=== PATIENT | female | born 1980 | race Caucasian/White ===

== ENCOUNTER 2024-03-18 14:35 | Emergency (ER) | payer MEDICAID, SELFPAY ==
--- OUTSIDE RECORDS SUMMARY | 2024-03-18 14:37 | XMS_ITS | Clinical Summary ---
Author Organization [facility] Address [address] [place] [address] Care Team Providers Care Kitchen Steward/Stewardess Name Role Phone [facility] Provider Allergies Active Allergy Reactions Criticality Noted Date Comments Sulfa Antibiotics Other (See Comments) 08/24/19 15 Tingling face Medications metFORMIN (GLUCOPHAGE-XR) 500 MG 24 hr tablet Take 1,000 mg by mouth daily (with dinner) Active Vit-Fe Fumarate-FA ( MULTIVITAMIN PLUS IRON) 27-0.8 MG TABS Take 1 tablet by mouth daily Active nitrofurantoin, macrocrystal-mono hydrate, (MACROBID) 100 MG capsule Take 1 capsule (100 mg) by mouth 2 times daily 14 capsule 0 5 Active metoclopramide (REGLAN) 10 MG tablet Take 1 tablet (10 mg) by mouth 3 times daily as needed (Nausea or Vomiting) 20 tablet 0 5 Active Pantoprazole Sodium (PROTONIX PO) Take 20 mg by mouth Active Omeprazole (PRILOSEC PO) Active Active Problems Problem Noted Date Diagnosed Date Indication for care in labor or delivery 016 CARDIOVASCULAR SCREENING; LDL GOAL LESS THAN 160 08/24/2014 Nicotine dependence 08/24/2014 Immunizations Name Administration Dates Next Due TDAP (Adacel,Boostrix) 01/18/2012 Social History Tobacco Use Types Packs/Day Years Used Date Smoking Tobacco: Former Cigarettes Tobacco Cessation:Ready to Q uit: No; Counseling Given: Yes Alcohol Use Standard Drinks/Week Comments No 0 (1 standard drink = 0.6 oz pur e alcohol) Socially Comments No Sex and Gender Information Value Date Recorded Sex Assigned at Not on file Legal Sex Female 1:45 PM CDT Gender Identity Not on file Sexual Orientation Not on file Last Filed Vital Signs Vital Sign Reading Time Taken Comments Blood Pressure 106/69 05/05/2017 8:30 PM CDT Pulse 64 05/05/2017 6:48 PM CDT Temperature 37.2 C (98.9 F) 05/05/2017 6:48 PM CDT Respiratory Rate 16 05/05/2017 8:15 PM CDT Oxygen Saturation 98% 05/05/2017 8:15 PM CDT Inhaled Oxygen Concentration - - Weight 88 kg (194 lb) 05/05/2017 6:48 PM CDT Height 182.9 cm (6') 05/05/2017 6:48 PM CDT Body Mass Index 26.31 05/05/2017 6:48 PM CDT Plan of Treatment Not on file Care Teams Kitchen Steward/Stewardess Relationship Specialty Start Date End Date [facility], [address] [address] [place] [address] PCP - General 08/18/14
--- OUTSIDE RECORDS SUMMARY | 2024-03-18 14:37 | XMS_ITS | Clinical Summary ---
Author Organization [facility] Address [place], [place] [address] Care Team Providers Care Port Warden Name Role Phone DirkLibia smith Primary Care Provider [phone] Amber Lomax IMPREGNATOR [employer] Unavailable Unavaila Brenda Correa RD Unavailable Unavailab Lauren Miller NP Unavailable Unavailable Shane Ventura RN Unavailable [phone] Allergies Active Allergy Reactions Criticality Noted Date Comments Sulfa (Sulfonamide Antibiotics) Other - Describe In Comment Field 01/18/2012 Face felt tingly Medications multivitamins pediatric chewable (FLINTSTONE'S) chewable tabletIndications :S/P gastric surgery Take 2 tablets by mouth once daily. 180 tablet 3 11/03/19 18 Active omeprazole (PRILOSEC) 20 mg Delayed-Release capsuleIndication s:GERD with esophagitis Take 1 capsule by mouth once daily before a meal. 90 capsule 3 02/23/19 20 Active Additional Information Patient taking differently:20 mg OralTWICE DAILY BEFORE MEALS, Informant: Patient's Recall, Reported on 02/05/2020 polyethylene glycoL (MIRALAX) 17 gram/dose powderIndications :Constipation, unspecified constipation type Take 17 g by mouth once daily. 1 jar 1 02/04/20 20 Active b complex vitamins (VITAMIN B COMPLEX) capsule Take 1 Capsule by mouth. 0 10/22/19 21 Active ferrous sulfate, 65 mg elemental, tabletIndications :Bariatric surgery status,Low ferritin Take 1 Tablet (325 mg) by mouth once daily with a meal. 90 Tablet 02/27/19 Active cholecalciferol (Vitamin D-3) 2,000 unit capsuleIndication s:Vitamin D insufficiency Take two capsules once daily or 4000 iu of vitamin D3 daily. 0 04/21/19 Active BD Cindy 2nd Gen Pen Needle 32 gauge x Indications: Bariatric surgery status,Overweight (BMI 25.0-29.9),Histor y of obesity FOR ADMINISTERING INSULIN AT HOME. TO USE WITH SAXENDA 100 Each 04/23/19 Active Saxenda 3 mg/0.5 mL (18 mg/3 mL) pnijIndications:B ariatric surgery status,Overweight (BMI 25.0-29.9),Histor y of obesity INJECT 3 MG (0.5ML) SUBCUTANEOUS ONCE DAILY. 5 Each 06/05/19 Active Active Problems Patient Care Coordination No te Formatting of this note migh t be different from the original. 2020 RD consult order entered 03/05/20. 2017 LSG 273 (6'; 37) Dr. Hinkle in [facility] program binder given to patient on 02/04/2020 [facility] Sandip Peraza LPN 02/04/20 10:05 AM Progress Note for Multidisciplinary Case Review 01/31/2020 Reason for Multidisciplinary Case Review: History of laparoscopic sleeve gastrectomy with Dr. Hinkle in 2017 in [place] with concern regarding GERD on PPI BID and continues to have Heartburn. Has a 20lb wt gain since covid started. Current BMI 25.7 WT 190 lbs A comprehensive review of imaging and relevant past medical history occured. UgI 01/30/20: IMPRESSION: 1. Small hiatal hernia without demonstration of gastroesophageal reflux. 2. Post gastric bypass with apparent breakdown of the staple line. 3. 2.5 cm diverticulum arising from the 2nd portion of the duodenum. EGD [place] 02/05/20: Impressions/Post-Op Diagnosis: - LA Grade A reflux esophagitis. - Normal gastroesophageal junction. - Small hiatal hernia. - Gastric sleeve with apparent proximal kink - No narrowing of sleeve incisura - Normal examined duodenum. - Several biopsies were obtained in the distal esophagus. Recommendation: - Continue present medications. - A letter will be sent to the patient with pathology results and any future recommendations. - The Bariatric Center will call you to make a plan for ongoing care after presentation of your history and anatomy at our Multidisciplinary Review (MDR). - Use Protonix (pantoprazole) 40 mg PO BID for 6 weeks. MDR on 02-21-20: Staff present from [facility], [facility], [facility] including Surgeons, Advance Practice Clinicians, Bariatric Nurse Clinicians, Registered Dietitians, Psychologists Patient was presented on: 02/21/20 Patient notified by phone on: 03/28/20 Chart update/addendum completed on: 04/29/20 Progress Note for Multidisciplinary Case Review 01/31/2020 Reason for Multidisciplinary Case Review: History of laparoscopic sleeve gastrectomy with Dr. Hinkle in 2017 in [facility] with concern regarding GERD on PPI BID and continues to have Heartburn. Has a 20lb wt gain since covid started. Current BMI 25.7 WT 190 lbs A comprehensive review of imaging and relevant past medical history occured. UgI 01/30/20: IMPRESSION: 1. Small hiatal hernia without demonstration of gastroesophageal reflux. 2. Post gastric bypass with apparent breakdown of the staple line. 3. 2.5 cm diverticulum arising from the 2nd portion of the duodenum. EGD [place] 02/05/20: Impressions/Post-Op Diagnosis: - LA Grade A reflux esophagitis. - Normal gastroesophageal junction. - Small hiatal hernia. - Gastric sleeve with apparent proximal kink - No narrowing of sleeve incisura - Normal examined duodenum. - Several biopsies were obtained in the distal esophagus. Recommendation: - Continue present medications. - A letter will be sent to the patient with pathology results and any future recommendations. - The Bariatric Center will call you to make a plan for ongoing care after presentation of your history and anatomy at our Multidisciplinary Review (MDR). - Use Protonix (pantoprazole) 40 mg PO BID for 6 weeks. MDR on 02/21/20: Staff present from [facility], [place] including Surgeons, Advance Practice Clinicians, Bariatric Nurse Clinicians, Registered Dietitians, Psychologists Discussion/Plan: candidate for Conversion to gastric Bypass per [facility]. Dr. Ceron not available at time of MDR. Message sent to him for review. If pt does NOT qualify per insurance, then the LINX procedure would be done. Additional testing needed: 04/28/20- DR. Ceron placed order for Motility Study. Present at [facility] again in Jun, 2020. Anticipated codes to be added to problem list GERD, Stapleline Disruption and Weight gain following weight loss surgery Problem Noted Date Diagnosed Date Overweight (BMI 25.0-29.9) 05/05/2020 History of obesity 05/05/2020 Hiatal hernia with GERD and esophagitis 04/29/19 Controlled substance agreeme nt signed - medical weight managment 02/04/2020 Overview (02/04/2020): phentermine GERD with esophagitis 02/23/2019 Chronic constipation 02/23/2019 Vitamin B 12 deficiency 02/23/2019 S/P Laparoscopic sleeve aline rectomy 2016 Dr. Hinkle in [place] 11/22/2017 Low serum HDL 04/03/2017 S/P section 06/10/2015 Branchial cleft cyst 03/13/2012 Anxiety state, unspecified 01/20/2012 Menorrhagia 01/20/2012 Resolved Problems Problem Noted Date Diagnosed Date Resolved Date Gestational diabetes 06/10/2015 018 Acute blood loss anemia 06/10/201503/17 Elevated blood pressure affe cting in third trimester, antepartum 06/10/2015 8 Elevated blood pressure 05/14/201503/17 GDM, class A2 05/07/2015 04/03/2017 Overview (05/07/2015): Diagnosed in 04/2015 at 33 weeks gestation, has history of GDM (Rx Glyburide). On metformin since 2012 for insulin resistance (no polycystic ovary syndrome) 05/01/2015 First visit to and Diabetes Clinic. 05/07/2015 Insulin initiation at 33w4d weeks gestation in the and Diabetes Clinic with Dr. King. Tobacco abuse 01/20/2012 11/02/2017 History of abnormal Pap smear 01/18/2012 04/03/2017 Obesity, unspecified 01/18/2012 020 NEOP, NOS, BONE/SOFT TISSUE/SKIN 06/29/1999 04/03/2017 Immunizations Name Administration Dates Next Due AMB INFLUENZA, IIV4 (AGE=>6M OS) MDV (Flu Clinic Only) 12/17/2018 Hepatitis B (Peds) 12/07/1999,06/29/1999, 000 Influenza, IIV3 (Age >=3 years) 01/18/2012 Influenza, IIV4 11/02/2017 Influenza,CCIIV4 PRESERV FREE 11/16/2016 Td (Age >=7 Years) 11/06/2001 Tdap 03/18/2015,01/18/2012 Family History Medical History Relation Name Comments COPD Father Cancer Father Lung Cancer-prostate Father Diabetes Father Heart failure Father Hyperlipidemia Father Hypertension Father Obesity Father Dementia Maternal Grandfather Lung cancer Maternal Grandmother Cancer-colon Maternal Uncle Diabetes Mother Hyperlipidemia Mother Hypertension Mother Obesity Mother Genetic Other 1 nil Genetic Other 2 no CA/CAD/DM/HT N Heart attack Paternal Grandfather Heart attack Paternal Grandmother Relation Name Status Comments Brother 1 Alive Brother 2 Alive Father Maternal Grandfather Maternal Grandmother Maternal Uncle Mother Alive Other 1 Other 2 Paternal Grandfather Paternal Grandmother Social History Tobacco Use Types Packs/Day Years Used Date Smoking Tobacco: Former Cigarettes 0.5 15 0 03/15/2001 - 03/15/2016 Smokeless Tobacco: Never Tobacco Cessation:Counseling Given: Yes Comments:off/on x 15 yrs Alcohol Use Standard Drinks/Week Comments Yes 0 (1 standard drink = 0.6 oz pur e alcohol) occassional PHQ-2 Answer Date Recorded PHQ-2 TOTAL SCORE 0 02/04/2020 Social Connections Answer Date Recorded Frequency of Communication with Friends and Fami ly Not on file 02/04/2021 Financial Resource Strain Answer Date R ecorded Difficulty of Paying Living Expenses Not on file 02/04/2021 Difficulty of Paying Living Expenses Not on file 02/04/2021 Comments No Sex and Gender Information Value Date Recorded Sex Assigned at Not on file Legal Sex Female 6:18 AM [employer] HRMS DEVELOPER Gender Identity Not on file Sexual Orientation Not on file 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 Last Filed Vital Signs Vital Sign Reading Time Taken Comments Blood Pressure 110/70 04/09/2021 1:12 PM [employer] HRMS DEVELOPER Pulse 100 04/09/2021 1:12 PM [employer] HRMS DEVELOPER Temperature 37.2 C (98.9 F) 05/28/2020 6:32 PM CDT Respiratory Rate 16 05/28/2020 6:32 PM CDT Oxygen Saturation 97% 05/28/2020 6:32 PM CDT Inhaled Oxygen Concentration - - Weight 86.2 kg (190 lb) 04/09/2021 1:12 PM [employer] HRMS DEVELOPER Height 182.9 cm (6' 0.01) 04/09/2021 1:12 PM CS T Body Mass Index 25.76 04/09/2021 1:12 PM [employer] HRMS DEVELOPER Plan of Treatment Upcoming Encounters Date Type Department Care Team (Late st Contact Info) Description 03/23/2024 11:15 AM [employer] HRMS DEVELOPER Office Visit [facility] [address] [place] [address] [place] [address] [place] [address] Health Maintenance Due Date Last Done Comments Pap test for age 21-65 04/01/2020 8, 01/18/2012, 01/10/2002, Additional history exists Depression screening for age 12+ 02/03/2021 02/04/2020, 01/22/2020, 02/23/2019, Additional history exists BMI (ht and wt on same day) for age 18+ 04/09/2022 04/09/2021, 02/27/2021, 12/30/2020, Additional history exists COVID-19 vaccine series ( season) 2023 04/29/2020, 04/12/2020 Influenza for age 9-49 10/16/2023 9, 11/02/2017, 11/16/2016, Additional history exists Tetanus booster 03/18/2025 03/18/2015, 05/2011, 11/06/2001 Tdap Completed 03/18/2015, 01/18/2012 HIV for age 15-65 Completed 06/09/2015 Hepatitis C screening for age 18-79 Completed 06/09/2015 Pneumococcal series for age 6-49 Aged Out No longer eligible based on patient's age to complete this topic Procedures Procedure Name Priority Date/Time Associated Diagnosis Comments RADIO FREQUENCY TECHNICIAN THIN PREP PAP SCREEN IMAGED Routine 04/01/2017 11:20 AM [employer] HRMS DEVELOPER Cervical cancer screening EXPOSURE (BBF) RAPID HIV STAT 06/09/2015 10:05 AM CDT EXPOSURE (BBF) ANTI HCV STAT 06/09/2015 10:05 AM CDT from Last 3 Months or Most Recently Relevant to Health Maintenance Results * RADIO FREQUENCY TECHNICIAN THIN PREP PAP SCREEN IMAGED (04/01/2017 11:20 AM PEOPLESOFT HRMS DEVELOPER) Case Report Gynecologic Cytology Report Case: [id number] Authorizing Provider: Libia Velazquez DO Collected: 04/01/2017 1120 Ordering Location: [facility] Received: 04/01/2017 1205 Clinic First Screen: Patrice Sarabia Specimen: RADIO FREQUENCY TECHNICIAN ThinPrep Vial Screening, Cervical 04/07/2017 10:28 AM PEOPLESOFT HRMS DEVELOPER [facility] INTERPRETATION/ RESULT NEGATIVE FOR INTRAEPITHELIAL LESION OR MALIGNANCY (NIL) (none) 04/07/2017 10:28 AM PEOPLESOFT HRMS DEVELOPER [facility] IMEN ADEQUACY Satisfactory for evaluation Endocervical component present 04/07/2017 10:28 AM PEOPLESOFT HRMS DEVELOPER [facility] HPV REQUEST HPV if ASCUS 04/07/2017 10:28 AM PEOPLESOFT HRMS DEVELOPER [facility] Date of LMP 03/02/2017 04/07/2017 10:28 AM PEOPLESOFT HRMS DEVELOPER [facility] Last Pap Date 01/18/12 04/07/2017 10:28 AM PEOPLESOFT HRMS DEVELOPER [facility] Last Pap Result NIL 8 10:28 AM [facility] Abnormal Pap or Crum Lynne Bx in last 5 years No 04/07/2017 10:28 AM [facility] Menstrual Status Regular Periods 04/07/2017 10:28 AM [facility] Crum Lynne Bx Done Today No 04/07/2017 10:28 AM [facility] Additional Information None given 04/07/2017 10:28 AM [facility] Automated Review Successful 04/07/2017 10:28 AM [facility] Comment:Specimen processed s uccessfully by automated [employer] assistant manager device, [employer] TV[employer] Imaging System, [employer] Note The pap test is a screening technique, not a diagnostic procedure. It is used primarily to screen for squamous cancers and precursor lesions. Published studies have shown that it is subject to both false negative and false positive results. The pap test should not be used as the sole means to diagnose or exclude pre-malignant and malignant lesions. Interpreted at [facility] ([facility], [facility], [facility], [facility], [facility], [facility], [facility]) 04/07/2017 10:[address] [facility] Other (Cervical) Non-Blood / Unknown 04/01/2017 11:20 AM PEOPLESOFT HRMS DEVELOPER 04/01/2017 12:05 PM PEOPLESOFT HRMS DEVELOPER us Libia Velazquez DO PATHOLOGY/CYTOLOGY Final Re sult [facility] [address] [place] [address], * Patient Source Rapid HIV - Unknown HIV (06/09/2015 10:05 AM CDT) SOURCE RAPID HIV SCREEN Non-Reacti ve Non-Reacti ve 06/09/2015 10:52 AM CDT [facility] Blood specimen (specimen) BLOOD SPECIMEN / Unknown Venipuncture / Unknown 06/09/2015 10:05 AM CDT 06/09/2015 10:25 AM CDT us Neida Spicer RN SEND OUTS Final Resu lt [facility] SENDOUT [place]IP [address] [address] [place] [address] * Patient Source ANTI HCV (06/09/2015 10:05 AM CDT) HEPATITIS C ANTIBODY Non-Reacti ve Non-Reacti ve 06/09/2015 4:09 PM CDT [facility] Blood specimen (specimen) BLOOD SPECIMEN / Unknown Venipuncture / Unknown 06/09/2015 10:05 AM CDT 06/09/2015 10:25 AM CDT Narrative [facility] - 06/09/2015 4:09 PM CDT Antibodies to HCV not detected; does not exclude the possibility of exposure to HCV. Neida Spicer RN SEND OUTS Final Resu lt [facility] [address] [place] [address], from Last 3 Months or Most Recently Relevant to Health Maintenance Insurance [facility] Advance Directives * Full Code (Latest Code Status on File) Date Activated Date Inactivated Comments 02/05/2020 10:28 AM 02/05/2020 1:11 PM Question Answer Comments Code Status Discussion: Not Discussed * Full Code Date Activated Date Inactivated Comments 02/05/2020 10:28 AM 02/05/2020 10:28 AM Question Answer Comments Code Status Discussion: Not Discussed * Full Code Date Activated Date Inactivated Comments 06/09/2015 8:33 AM 06/11/2015 3:42 PM * Full Code Date Activated Date Inactivated Comments 06/09/2015 5:53 AM 06/09/2015 8:33 AM * Full Code Date Activated Date Inactivated Comments 06/05/2015 10:25 PM 06/06/2015 1:25 AM Care Teams Port Warden Relationship Specialty Start [place] [address] [place] [address] PCP - General Family Practice 12/27/11 Amber Lomax, JAMIL [address] [place] [address] Nurse Practitioner Surgery - General 07/26/[address] [place] [address] [place] [address] Registered Dietitian [employer] Crewmember 07/26/17 Lauren Schofield, IMPREGNATOR [employer] [address] [place] [address] Nurse Practitioner Nurse Practitioner - Family 02/04/20 [place] [address] [place] [address] Registered Nurse Registered Nurse 04/29/20
--- OUTSIDE RECORDS SUMMARY | 2024-03-18 14:37 | XMS_ITS | Referral Summary ---
Author Organization [facility] Address [address] [place] [address] Care Team Providers Care Audiologist Name Role Phone [facility] Primary Care Provider Allergies Active Allergy Reactions [...] of Treatment Not on file Care Teams Audiologist Relationship Specialty Start Date End Date [facility], [address] [place] [address] [place] [address] PCP - General 08/18/14
[2024-03-18 14:58] VITALS: BP 153/101; PULSE 116; RESP 20; TEMP 37.4; O2SAT 99; BMI 32.5
--- NOTE | 2024-03-18 15:31 | ED_ITS ---
HPI - General Adult General Chief complaint: Arrhythmia/Palpitations Stated complaint: elevated heart rate and BP, ear ringing Time Seen by Provider: 03/18/24 14:46 History of Present Illness HPI narrative: This 43-year-old female comes in reporting anxiety about her health and other matters. A she states that she has had anxiety for a long time in some time ago did take Zoloft, Wellbutrin, and Prozac at different times. These medicines did not seem to help and the ladder to seem to cause some adverse effects that she did care for. She states that she has had some ringing in her left ear over the past week and this is caused increased anxiety for her. She does not have any hearing loss or vertigo symptoms. She also was concerned about her blood pressure and heart rate. Related Data Previous Rx's ?Medication ?Instructions ?Recorded escitalopram oxalate 10 mg tablet 10 mg PO DAILY #30 tabs 03/18/24 (Lexapro) lorazepam 0.5 mg tablet (Ativan) 0.5 mg PO BID PRN #15 tabs 03/18/24 Allergies Allergy/AdvReac Type Severity Reaction Status Date / Time Sulfa (Sulfonamide Allergy Verified 03/18/24 14:57 Antibiotics) Review of Systems Status of ROS: Reports: 10 or more systems reviewed and unremarkable except as noted in History and below Narrative: Constitutional: No fevers, no weight gain or loss. Eyes: No discharge. No vision changes. HENT: No congestion, no sore throat, no ear pain. Cardiovascular: No chest pain, no palpitations. Respiratory: No shortness of breath, no wheezes, no cough. Gastrointestinal: No abdominal pain, no vomiting, no diarrhea. Genitourinary: No dysuria, no hematuria. Musculoskeletal: Normal range of motion. Skin: No rashes, no pruritis. Neurological: No dizziness, weakness, sensory change, speech change. Endo/Heme/Allergies: No bruising or bleeding. No polydipsia. Pysch: no suicidality. Lots of anxiety with some occasions of insomnia. All other systems reviewed and are negative. Exam Narrative: Exam Narrative: Constitutional: Well-developed, well-nourished, no acute distress. HEENT: Normocephalic, atraumatic. Neck: Normal range of motion. Nontender. Supple. Heart: Regular. No murmurs. Borderline tachycardia. Intact distal pulses. Lungs: Clear to auscultation. No chest discomfort. No wheezes, rhonchi, or rales. Abdomen: Normal bowel sounds. Nontender. No rebound tenderness. Genitalia: Deferred. Back: No midline tenderness. Normal range of motion. Extremities: Normal range of motion. No injury. Skin: Intact. No rash. Warm. No erythema or pallor. Neurologic: No altered sensation. No weakness. Alert and oriented. Psychiatric: No suicidality. No depression. No insomnia. Very anxious with tears at times. Nursing notes and vitals signs are reviewed. Const: Vital Signs, click to edit/add: Vital Signs - 24 hr 03/18/24 14:58 Pulse Rate [Pulse Oximeter] 116 H Respiratory Rate 20 Blood Pressure [Le ft Upper Arm] 153/101 H Pulse Oximetry 99 Oxygen Delivery Me thod Room Air Course Vital Signs Vital signs: Initial Vital Signs Temperature Source Temporal Artery Scan 03/18/24 14:58 Pulse Rate 116 H 03/18/24 14:58 Pulse Rhythm Regular 03/18/24 14:58 Respiratory Rate 20 03/18/24 14:58 Blood Pressure 153/101 H 03/18/24 14:58 Blood Pressure Mean 118 H 03/18/24 14:58 Blood Pressure Position Semi-Fowlers 03/18/24 14:58 Pulse Oximetry 99 03/18/24 14:58 Oxygen Delivery Method Room Air 03/18/24 14:58 Vital Signs Pulse Rate 116 H 03/18/24 14:58 Respiratory Rate 20 03/18/24 14:58 Blood Pressure 153/101 H 03/18/24 14:58 Pulse Oximetry 99 03/18/24 14:58 Oxygen Delivery Method Room Air 03/18/24 14:58 Pulse Rate 116 H 03/18/24 14:58 Respiratory Rate 20 03/18/24 14:58 Blood Pressure 153/101 H 03/18/24 14:58 Pulse Oximetry 99 03/18/24 14:58 Oxygen Delivery Method Room Air 03/18/24 14:58 Medical Decision Making MDM Narrative Medical decision making narrative: This patient is presenting with significant anxiety. I did discuss lab and imaging options with the patient but she feels that is primarily anxiety which she has had for very long time. I did offer a dose of Ativan but she declined this for now as she will need to drive home. I did provide prescription for Ativan tablets and then also Lexapro. She does have a follow-up appointment with her primary physician later this week. She understands that Ativan is not a good long-term plan and that she will not get refill for this medicine from the emergency department. Discharge Plan Discharge Clinical Impression: Anxiety Patient Disposition: Home, Self-Care Condition: Stable Additional Instructions: Start Lexapro as prescribed and use Ativan as needed. Follow up with primary physician as scheduled or return if worsening. Prescriptions: New lorazepam [Ativan] 0.5 mg tablet 0.5 mg PO BID PRNQty: 15 0RF escitalopram oxalate [Lexapro] 10 mg tablet 10 mg PO DAILY Qty: 30 2RF Stand Alone Forms: [employer] Info Instructions
--- OUTSIDE RECORDS SUMMARY | 2024-03-18 16:08 | XMS_ITS | Clinical Summary ---
Author Organization [facility] Address [place], [place] [address] Care Team Providers Care Immigration Inspector Name Role Phone DirkLibia smith Primary Care Provider Amber Lomax FLAT KNITTER Unavailable Unavaila Brenda Correa RD Unavailable Unavailab Lauren Miller NP Unavailable Unavailable Shane Ventura RN Unavailable [phone] Allergies Active Allergy Reactions Criticality Noted [...] program binder given to patient on 02/04/2020 [facility] Sandip Peraza LPN 02/04/20 10:05 AM Progress [...] weeks. MDR on 02-21-20: Staff present from [facility], [facility], [facility] & [facility] including Surgeons, Advance Practice Clinicians, Bariatric Nurse Clinicians, Registered Dietitians, Psychologists Patient was presented on: 02/21/20 Patient notified by phone on: 03/28/20 Chart update/addendum completed on: 04/29/20 Progress Note for Multidisciplinary Case Review 01/31/2020 Reason for Multidisciplinary Case Review: History of laparoscopic sleeve gastrectomy with Dr. Hinkle in 2017 in [facility] with concern regarding GERD on PPI BID [...] the 2nd portion of the duodenum. EGD [place] 02/05/20: Impressions/Post-Op Diagnosis: - LA Grade A [...] weeks. MDR on 02/21/20: Staff present from [facility], [place] including Surgeons, [...] placed order for Motility Study. Present at [facility] again in Jun, 2020. Anticipated codes to [...] sleeve aline rectomy 2016 Dr. 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 Not on file Not on file Not on derek e Obstetrics History Para Term AB IAB [...] M [facility] 9 9 Delivery Location:[facility] Last Filed Vital Signs Vital Sign Reading Time Taken Comments Blood Pressure 110/70 04/09/2021 1:12 PM VAT OVERHAULER Pulse 100 04/09/2021 1:12 PM VAT OVERHAULER Temperature 37.2 C (98.9 F) 05/28/2020 6:32 PM CDT Respiratory Rate 16 05/28/2020 6:32 PM CDT Oxygen Saturation 97% 05/28/2020 6:32 PM CDT Inhaled Oxygen Concentration - - Weight 86.2 kg (190 lb) 04/09/2021 1:12 PM VAT OVERHAULER Height 182.9 cm (6' 0.01) 04/09/2021 1:12 PM CS T Body Mass Index 25.76 04/09/2021 1:12 PM VAT OVERHAULER Plan of Treatment Upcoming Encounters Date Type Department Care Team (Late st Contact Info) Description 03/23/2024 11:15 AM VAT OVERHAULER Office Visit [facility] [address] [place] [address] [place] [address] [place] [address] Health Maintenance Due Date Last Done Comments [...] Procedure Name Priority Date/Time Associated Diagnosis Comments BAIT PAINTER THIN PREP PAP SCREEN IMAGED Routine 04/01/2017 11:20 AM VAT OVERHAULER Cervical cancer screening EXPOSURE (BBF) RAPID HIV STAT 06/09/2015 10:05 AM CDT EXPOSURE (BBF) ANTI HCV STAT 06/09/2015 10:05 AM CDT from Last 3 Months or Most Recently Relevant to Health Maintenance Results * BAIT PAINTER THIN PREP PAP SCREEN IMAGED (04/01/2017 11:20 AM VAT OVERHAULER) Case Report Gynecologic Cytology Report Case: [id number] Authorizing Provider: Libia Velazquez DO Collected: 04/01/2017 1120 Ordering Location: [facility] Received: 04/01/2017 1205 Clinic First Screen: Patrice Sarabia Specimen: BAIT PAINTER ThinPrep Vial Screening, Cervical 04/07/2017 10:28 AM VAT OVERHAULER [facility] INTERPRETATION/ RESULT NEGATIVE FOR INTRAEPITHELIAL LESION OR MALIGNANCY (NIL) (none) 04/07/2017 10:28 AM VAT OVERHAULER [email or web address] IMEN ADEQUACY Satisfactory for evaluation Endocervical component present 04/07/2017 10:28 AM VAT OVERHAULER [facility] HPV REQUEST HPV if ASCUS 04/07/2017 10:28 AM VAT OVERHAULER [facility] Date of LMP 03/02/2017 04/07/2017 10:28 AM VAT OVERHAULER [facility] Last Pap Date 01/18/12 04/07/2017 10:28 AM VAT OVERHAULER [facility] Last Pap Result NIL 8 10:28 AM [facility] Abnormal Pap or [place] Bx in last 5 years No 04/07/2017 10:28 AM [facility] Menstrual Status Regular Periods 04/07/2017 10:28 AM [facility] [place] Bx Done Today No 04/07/2017 10:28 AM [facility] Additional Information None given 04/07/2017 10:28 AM [facility] Automated Review Successful 04/07/2017 10:28 AM [facility] Comment:Specimen processed s uccessfully by automated contact lens molder device, [employer] System, [employer] Note The pap test is a screening technique, not a diagnostic procedure. It is used primarily to screen for squamous cancers and precursor lesions. Published studies have shown that it is subject to both false negative and false positive results. The pap test should not be used as the sole means to diagnose or exclude pre-malignant and malignant lesions. Interpreted at [facility] ([facility], [facility], [facility], [facility], [facility], [facility], [facility]) 04/07/2017 10:28 AM [facility] Other (Cervical) Non-Blood / Unknown 04/01/2017 11:20 AM VAT OVERHAULER 04/01/2017 12:05 PM VAT OVERHAULER us Libia Velazquez DO PATHOLOGY/CYTOLOGY Final Re sult [facility] [address] [place] [address], * Patient Source Rapid HIV - Unknown HIV (06/09/2015 10:05 AM CDT) SOURCE RAPID HIV SCREEN Non-Reacti ve Non-Reacti ve 06/09/2015 10:52 AM CDT [facility] Blood specimen (specimen) BLOOD SPECIMEN / Unknown Venipuncture / Unknown 06/09/2015 10:05 AM CDT 06/09/2015 10:25 AM CDT us Neida Spicer RN SEND OUTS Final Resu lt [facility] SENDOUT [place]NAL ZIP [id number] [place] [address] * Patient Source ANTI HCV (06/09/2015 10:05 AM CDT) HEPATITIS C ANTIBODY Non-Reacti ve Non-Reacti ve 06/09/2015 4:09 PM CDT [facility] Blood specimen (specimen) BLOOD SPECIMEN / Unknown Venipuncture / Unknown 06/09/2015 10:05 AM CDT 06/09/2015 10:25 AM CDT Narrative [facility] - 06/09/2015 4:09 PM CDT Antibodies to HCV not detected; does not exclude the possibility of exposure to HCV. Neida Spicer RN SEND OUTS Final Resu lt [facility] [address] [place] [address], from Last 3 Months or Most Recently Relevant to Health Maintenance Insurance [facility] Advance Directives * Full Code (Latest Code [...] 10:25 PM 06/06/2015 1:25 AM Care Teams Immigration Inspector Relationship Specialty [place] [address] [place] [address] PCP - General Family Practice 12/27/11 Amber Lomax, JAMIL [address] [place] [address] Nurse Practitioner Surgery - General 07/26/[address] [place] [address] [place] [address] Registered Dietitian Drum Dyeing Machine Operator 07/26/17 Lauren Schofield, FLAT KNITTER [address] [place] [address] Nurse Practitioner Nurse Practitioner - Family 02/04/20 [place] [address] [place] [address] Registered Nurse Registered Nurse 04/29/20
--- OUTSIDE RECORDS SUMMARY | 2024-03-18 16:08 | XMS_ITS | Referral Summary ---
Author Organization [facility] Address [address] [place] [address] Care Team Providers Care Superintendent Commissary Name Role Phone [facility] Primary Care Provider Allergies Active Allergy Reactions [...] of Treatment Not on file Care Teams Superintendent Commissary Relationship Specialty Start Date End Date [facility], Karine Cuervo [address] [place] [address] PCP - General 08/18/14
--- OUTSIDE RECORDS SUMMARY | 2024-03-18 16:08 | XMS_ITS | Clinical Summary ---
Author Organization [facility] Address [address] [place] [address] Care Team Providers Care Auto Care Center Manager Name Role Phone [facility] [place] Primary Care Provider Allergies Active Allergy Reactions [...] of Treatment Not on file Care Teams Auto Care Center Manager Relationship Specialty Start Date End Date [facility], Karine [place] [address] [place] [address] PCP - General 08/18/14
== END 2024-03-18 16:05 | disposition home or self-care (01) ==
LOC: ED 16:06
PROVIDERS: Emergency Provider Emergency Medicine Emergency Medical Services
DX: F41.9 Anxiety disorder, unspecified (principal)
CPT/HCPCS: 99282; 99283; 99284